=== PATIENT | female | born 2000 | race Native Hawaiian/Other Pacific Islander ===

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

== ENCOUNTER → 2019-09-02 21:26 | Outpatient (CLI) | payer OTHER | END | disposition home or self-care (01) | LOC: AMB 21:26 | DX: Z04.1 Encounter for examination and observation following transport accident (principal); M54.9 Dorsalgia, unspecified ==

== ENCOUNTER 2019-09-02 22:32 | Emergency (ER) | payer OTHER ==
[~2019-09-02] VITALS: Ht 139.7 cm; Wt 47.6 kg
[2019-09-02 22:35] VITALS: TEMP 97.5
[2019-09-03 00:29] VITALS: BP 94/52
== END 2019-09-03 00:31 | disposition home or self-care (01) ==
LOC: ED 22:32
DX: S16.1XXA Strain of muscle, fascia and tendon at neck level, initial encounter (principal); S39.012A Strain of muscle, fascia and tendon of lower back, initial encounter; V57.0XXA Driver of pick-up truck or van injured in collision with fixed or stationary object in nontraffic accident, initial encounter
CPT/HCPCS: 99283

== ENCOUNTER 2020-01-17 21:39 | Emergency (ER) | payer OTHER ==
[~2020-01-17] VITALS: Ht 139.7 cm; Wt 46.3 kg
[2020-01-17 22:46] VITALS: BP 122/68; TEMP 98.1
== END 2020-01-17 22:46 | disposition home or self-care (01) ==
LOC: ED 21:39
DX: J01.90 Acute sinusitis, unspecified (principal)
CPT/HCPCS: 87502; 87651; 99283

== ENCOUNTER 2020-07-02 09:05 | Outpatient (CLI) | payer OTHER | END 2020-07-02 23:57 | disposition home or self-care (01) | LOC: RAD 09:05 | DX: M25.521 Pain in right elbow (principal) ==

== ENCOUNTER 2020-07-23 11:16 | Outpatient (CLI) | payer OTHER | END 2020-07-23 23:23 | disposition home or self-care (01) | LOC: RAD 11:16 | DX: R07.81 Pleurodynia (principal) ==

== ENCOUNTER 2020-10-20 20:19 | Emergency (ER) | payer OTHER ==
[~2020-10-20] VITALS: Ht 139.7 cm; Wt 4.5 kg
[2020-10-20 22:48] LABS: PLATELET COUNT 269 K/uL (152-353)
[2020-10-21 00:10] VITALS: BP 110/47; TEMP 97.8
== END 2020-10-21 00:10 | disposition home or self-care (01) ==
LOC: ED 20:19
PROVIDERS: Emergency Medicine Emergency Medical Services
PROC: 0H9DXZZ Drainage of Right Lower Arm Skin, External Approach (ICD-10-PCS; principal; 2020-10-20)
DX: L02.413 Cutaneous abscess of right upper limb (principal)
CPT/HCPCS: 36415; 85027; 87040; 87070; 87077; 87185; 87186; 87205; 96360; 96365; 96375; 99284; J2001; J2270; J2405; J3370

== ENCOUNTER 2020-10-22 12:47 | Emergency (ER) | payer OTHER ==
[~2020-10-22] VITALS: Ht 139.7 cm; Wt 49.9 kg
[2020-10-22 12:59] VITALS: BP 118/69; TEMP 98.4
== END 2020-10-22 13:29 | disposition home or self-care (01) ==
LOC: ED 12:47
DX: Z48.01 Encounter for change or removal of surgical wound dressing (principal)
CPT/HCPCS: 99282

== ENCOUNTER 2022-01-08 12:52 | Outpatient (CLI) | payer OTHER | END 2022-01-08 21:46 | disposition home or self-care (01) | LOC: RAD 12:52 | PROVIDERS: ATTEND Nurse Practitioner Family | DX: M25.511 Pain in right shoulder (principal) ==

== ENCOUNTER 2022-06-28 22:59 | Emergency (ER) | payer OTHER ==
[~2022-06-28] VITALS: Ht 139.7 cm; Wt 49.9 kg
[2022-06-29 00:25] VITALS: BP 103/74; TEMP 98.5
== END 2022-06-29 00:25 | disposition home or self-care (01) ==
LOC: ED 22:59
DX: S52.124 Nondisplaced fracture of head of right radius (principal); S42.43 Fracture (avulsion) of lateral epicondyle of humerus; M24.021 Loose body in right elbow; V89.2XXD Person injured in unspecified motor-vehicle accident, traffic, subsequent encounter; Y92.89 Other specified places as the place of occurrence of the external cause
CPT/HCPCS: 99283

== ENCOUNTER 2023-02-11 08:26 | Outpatient (CLI) | payer OTHER | END 2023-02-11 19:14 | disposition home or self-care (01) | LOC: US 08:26 | PROVIDERS: ATTEND Nurse Practitioner Primary Care | DX: R10.11 Right upper quadrant pain (principal) ==

== ENCOUNTER 2023-03-29 15:53 | Outpatient (CLI) | payer OTHER | END 2023-03-29 19:46 | LOC: CT 15:53 | PROVIDERS: ATTEND Nurse Practitioner Family | DX: N20.2 Calculus of kidney with calculus of ureter (principal) ==